=== PATIENT | male | born 2000 | race African-American/Black ===

== ENCOUNTER 2023-02-04 15:30 | Emergency (ER) | payer OTHER ==
[2023-02-04 15:51] VITALS: BP 115/78; PULSE 62; RESP 18; TEMP 98; BMI 34.4
[2023-02-04] MEDS ORDERED: TETRACAINE 0.5% HCL 0.6ML DROPPER.BOTTLE OD ONE (16:23)
[2023-02-04] MEDS ORDERED: FLUORESCEIN NA 1 EA STRIP OD ONE (16:23)
[2023-02-04] MEDS ORDERED: FLUORESCEIN NA 1 EA STRIP ONE (16:28)
[2023-02-04] MEDS ORDERED: TETRACAINE 0.5% OPHTH SOLN 2 ML BOTTLE ONE (16:28)
== END 2023-02-04 17:09 | disposition home or self-care (01) ==
LOC: JER 15:30
DX: S05.91XA Unspecified injury of right eye and orbit, initial encounter (principal); H11.31 Conjunctival hemorrhage, right eye; H57.11 Ocular pain, right eye; H57.89 Other specified disorders of eye and adnexa; Y04.2XXA Assault by strike against or bumped into by another person, initial encounter
CPT/HCPCS: 99283-25

== ENCOUNTER 2023-10-03 10:48 | Emergency (ER) | payer OTHER ==
[2023-10-03 11:11] VITALS: BP 129/90; PULSE 77; RESP 20; TEMP 98.2; BMI 34.7
[2023-10-03] MEDS ORDERED: LIDOCAINE HCL 2% (20ML MULTI-DOSE VIAL) ONE (11:51)
[2023-10-03] MEDS ORDERED: DIPHTH,PERTUSS(ACELL),TET 0.5 ML DISP.SYRIN IM ONE (11:51)
[2023-10-03] MEDS: DIPHTH,PERTUSS(ACELL),TET 0.5 ML DISP.SYRIN IM ONE (11:52)
[2023-10-03] MEDS: LIDOCAINE HCL 2% (50ML VIAL) INF ONE (11:53)
== END 2023-10-03 12:30 | disposition home or self-care (01) ==
LOC: FER 10:48
PROC: 0HQGXZZ Repair Left Hand Skin, External Approach (ICD-10-PCS; principal; 2023-10-03)
PROC: 3E0234Z Introduction of Serum, Toxoid and Vaccine into Muscle, Percutaneous Approach (ICD-10-PCS; 2023-10-03)
DX: S61.217A Laceration without foreign body of left little finger without damage to nail, initial encounter (principal); W26.8XXA Contact with other sharp object(s), not elsewhere classified, initial encounter; Y93.02 Activity, running; Y99.0 Civilian activity done for income or pay
CPT/HCPCS: 90715; 99282-25

== ENCOUNTER 2023-10-12 07:18 | Emergency (ER) | payer OTHER ==
[2023-10-12 07:26] VITALS: BP 115/53; PULSE 59; RESP 20; TEMP 98.9; BMI 34.7
== END 2023-10-12 07:41 | disposition home or self-care (01) ==
LOC: FER 07:18
DX: Z48.02 Encounter for removal of sutures (principal)
CPT/HCPCS: 99281-25

== ENCOUNTER 2023-12-24 11:24 | Emergency (ER) | payer OTHER ==
[2023-12-24 11:46] VITALS: BP 123/74; PULSE 63; RESP 18; TEMP 98.2; BMI 35.3
[2023-12-24] MEDS ORDERED: ACETAMINOPHEN 500 MG TABLET (FP) ONE (12:09)
[2023-12-24] MEDS: ACETAMINOPHEN 500 MG TABLET (FP) PO ONE (12:11)
== END 2023-12-24 13:05 | disposition home or self-care (01) ==
LOC: FER 11:24
DX: S06.0X0A Concussion without loss of consciousness, initial encounter (principal); W22.8XXA Striking against or struck by other objects, initial encounter
CPT/HCPCS: 70450-TC; 99284-25